=== PATIENT | male | born 2000 | race African-American/Black ===

== ENCOUNTER 2018-10-04 23:21 | Emergency (ER) | payer BC, OTHER ==
[2018-10-05] MEDS ORDERED: Ketorolac Tromethamine 30 MG/ML VIAL ONE (00:07)
[2018-10-05 00:11] LABS: #Basophils 0.1 thou/uL (0.0-0.2); #Lymphocytes 1.1 thou/uL (1.20-3.40); #Monocytes 0.9 thou/uL (0.11-0.59); %Basophils 1.4 % (0.0-1.0); %Eosinophils 0.1 % (0.0-10.0); %Lymphocytes 18.1 % (28.0-48.0); %Monocytes 14.4 % (0.0-4.0); %Neutrophils 66.1 % (31.0-61.0); Hemoglobin 16.5 g/dL (14.0-18.0); Mean Corpuscular HGB CONC 32.3 g/dL (32.0-36.0); Mean Corpuscular Hemoglobin 27.9 pg (25.0-35.0); Mean Corpuscular Volume 86.4 fL (78.0-98.0); Mean Platelet Volume 7.6 fL (7.4-10.4); Platelet Count 180 thou/uL (130-400); RBC Distribution Width 11.1 % (11.5-14.5); White Blood Cell (WBC) Count 6.1 thou/uL (4.8-10.8)
[2018-10-05 00:14] LABS: Clarity Clear (Clear); Leukocyte Negative (Negative); Nitrite Negative (Negative); Specific Gravity, Urine 1.015 (1.005-1.030)
[2018-10-05 00:15] LABS: Bilirubin Negative (Negative); Blood, Urine Negative (Negative); Glucose, Urine (Dipstick) Negative (Negative); Protein, Urine (Dipstick) Negative (Neg-Trace)
[2018-10-05 00:22] LABS: ALT (SGPT) 9 U/L (8-55); AST (SGOT) 16 U/L (10-45); Albumin 4.3 g/dL (3.5-5.0); Alkaline Phosphatase 77 U/L (Less than 750); Anion Gap 14 mmol/L (10-20); BUN (Urea Nitrogen) 11 mg/dL (8.4-21.0); Bilirubin, Total 1.1 mg/dL (0.2-1.2); Calcium 9.4 mg/dL (7.8-10.44); Carbon Dioxide 29 mmol/L (22-29); Chloride 97 mmol/L (98-107); Globulin 3.2 g/dL (2.4-3.5); Glucose 106 mg/dL (70-105); Potassium 4.1 mmol/L (3.5-5.1); Protein, Total 7.5 g/dL (6.0-8.3); Sodium 136 mmol/L (136-145)
[2018-10-05 00:41] LABS: Calc. Creatinine Clearance 0 mL/min (70-130); Estimated GFR-MDRD 90
[2018-10-05 02:30] LABS: Color Of CSF Supernatant COLORLESS (Colorless); Tube # 2; Unspun CSF Color COLORLESS (Colorless)
[2018-10-05 02:42] LABS: CSF, Glucose 64 mg/dl (40-70); CSF, Protein 19 mg/dL (15-40)
[2018-10-05 02:50] LABS: CSF Source CSF; Clarity Clear (Clear); RBC Count - Manual 2 /cumm (None Seen); Tube # 1; WBC/NonHematics Count - Manual 0 /cumm (0-5)
== END 2018-10-05 02:56 | disposition home or self-care (01) ==
LOC: BURERS 23:21
DX: R50.9 Fever, unspecified (principal); R51 Headache; F90.9 Attention-deficit hyperactivity disorder, unspecified type
CPT/HCPCS: 62270; 80053; 81003; 82945; 84157; 85025; 87070; 87205; 89051; 96361; 96374; J1885

== ENCOUNTER 2019-06-25 16:36 | Emergency (ER) | payer BC ==
[2019-06-25 16:57] LABS: Bilirubin Negative (Negative); Blood, Urine Large (Negative); Clarity Clear (Clear); Glucose, Urine (Dipstick) Negative (Negative); Leukocyte Negative (Negative); Nitrite Negative (Negative); Protein, Urine (Dipstick) Negative (Neg-Trace); Urobilinogen 0.2 mg/dL (Less than 2)
[2019-06-25 17:00] LABS: Bacteria/HPF Rare-Few HPF (None Seen); Squamous Epithelial None Seen HPF (0-3); WBC/HPF 0-3 HPF (0-3)
== END 2019-06-25 17:07 | disposition home or self-care (01) ==
LOC: BURERS 16:36
DX: R31.9 Hematuria, unspecified (principal); F90.9 Attention-deficit hyperactivity disorder, unspecified type
CPT/HCPCS: 81003; 81015; 99283

== ENCOUNTER 2020-11-23 22:57 | Emergency (ER) | payer BC ==
[2020-11-23 23:36] LABS: Clarity Cloudy (Clear)
[2020-11-23 23:37] LABS: Leukocyte Moderate (Negative); Nitrite Negative (Negative); Urobilinogen 0.2 mg/dL (Less than 2)
[2020-11-23 23:38] LABS: Protein, Urine (Dipstick) 100 mg/dL (Neg-Trace)
[2020-11-23 23:39] LABS: Blood, Urine Large (Negative); Ketone, Urine Negative (Negative)
[2020-11-23 23:40] LABS: Bilirubin Moderate (Negative); Glucose, Urine (Dipstick) Negative (Negative)
[2020-11-23 23:41] LABS: Specific Gravity, Urine 1.017 (1.002-1.036)
[2020-11-23 23:44] LABS: Bacteria/HPF None Seen HPF (None Seen); RBC/HPF Greater than 50 HPF (0-3); Squamous Epithelial None Seen HPF (0-3); WBC/HPF 0-3 HPF (0-3)
== END 2020-11-23 23:52 | disposition home or self-care (01) ==
LOC: BURERS 22:57
DX: R31.9 Hematuria, unspecified (principal)
CPT/HCPCS: 81003; 81015; 99283

== ENCOUNTER 2022-02-10 08:32 | Emergency (ER) | payer BC | END 2022-02-10 09:35 | disposition home or self-care (01) | LOC: BURERS 08:32 | DX: S93.401A Sprain of unspecified ligament of right ankle, initial encounter (principal); X50.1XXA Overexertion from prolonged static or awkward postures, initial encounter; Y93.67 Activity, basketball ==

== ENCOUNTER 2023-02-07 22:01 | Emergency (ER) | payer BC ==
[2023-02-07] MEDS ORDERED: Boostrix 0.5 ML (Tdap) VIAL (>/=7 yrs of age) ONE (22:54)
== END 2023-02-07 23:15 | disposition home or self-care (01) ==
LOC: BURERS 22:01
DX: S01.81XA Laceration without foreign body of other part of head, initial encounter (principal); W50.0XXA Accidental hit or strike by another person, initial encounter
CPT/HCPCS: 12011; 90471; 90715